=== PATIENT | male | born 1955 | race Caucasian/White ===

== ENCOUNTER → 2019-11-14 10:58 | Outpatient (REF) | payer BC, SELFPAY | LOC: ANHLAB 10:58 | PROVIDERS: PCP Internal Medicine; Visit Provider Nurse Practitioner | DX: D49.2 Neoplasm of unspecified behavior of bone, soft tissue, and skin (principal) | CPT/HCPCS: 88305 ==

== ENCOUNTER 2019-12-20 09:34 | Outpatient (CLI) | payer BC, SELFPAY ==
[2019-12-20 09:48] LABS: Basophils Absolute Auto 0.1 K/mm3 (0.0-0.1); Basophils Percent Auto 0.5 % (0.2-1.2); Eosinophils Absolute Auto 0.2 K/mm3 (0-0.3); Eosinophils Percent Auto 2.4 % (0-4.4); Hematocrit 53.2 % (42.0-52.0); Hemoglobin 18.1 g/dL (14.0-18.0); Immature Granulocyte Absolute 0.03 K/mm3 (0.00-0.031); Immature Granulocyte Percent A 0.3 % (0-0.5); Lymphocytes Absolute Auto 3.01 K/mm3 (0.9-3.2); Lymphocytes Percent Auto 32.6 % (18.3-44.2); Mean Corpuscular Hemoglobin 32.6 pg (26-34); Mean Corpuscular Volume 95.9 fl (80-100); Mean Platelet Volume 10.3 fl (7.4-10.4); Monocytes Absolute Auto 1.1 K/mm3 (0.1-0.6); Neutrophils Absolute Auto 4.8 K/mm3 (1.3-6.7); Neutrophils Percent Auto 52.2 % (45.5-73.1); Platelet Count Result 181 k/mm3 (150-375); Red Blood Count 5.55 M/mm3 (4.6-6.20); White Blood Count 9.2 K/mm3 (4.5-10.0)
[2019-12-20 11:39] LABS: Alanine Aminotransferase 44 U/L (4-50); Albumin Level 4.8 g/dL (3.5-5.1); Alkaline Phosphatase 57 U/L (38-126); Aspartate Amino Transferase 34 U/L (17-59); Blood Urea Nitrogen 22 mg/dL (9-20); Calcium 9.8 mg/dL (8.4-10.2); Carbon Dioxide 25 mmol/L (22-30); Chloride 101 mmol/L (98-107); Estimated Glomerular Filt Rate > 60; Glucose 109 mg/dL (75-110); Potassium 4.9 mmol/L (3.4-5.0); Sodium 136 mmol/L (137-145)
[2019-12-22 17:57] LABS: Erythropoietin (EPO) 6.5 mIU/mL (2.6-18.5)
== END 2019-12-20 09:35 | disposition home or self-care (01) ==
LOC: ANHLAB 09:35
PROVIDERS: PCP Internal Medicine; Visit Provider Internal Medicine Hematology & Oncology
DX: D75.1 Secondary polycythemia (principal)
CPT/HCPCS: 36415; 80053; 82668; 85025

== ENCOUNTER 2022-10-02 00:56 | Day surgery (SDC) | payer MEDICARE, SELFPAY ==
[2022-09-22 16:05] VITALS: BMI 35.0
--- NOTE | 2022-10-01 17:03 | PM.HPGS ---
History of Present Illness History of Present Illness Consent: Risks, benefits, and alternatives have been discussed and questions answered. Patient agrees to proceed with procedure. Chief complaint: neoplasm screening Narrative: Poncho Weeks is a 67 year old male referred for colon cancer screening. Review of Systems Review of Systems: All systems reviewed & are unremarkable except as noted in HPI and below PMFSH Past Medical History Medical History Benign essential hypertension Diabetes DM w/o complication type II Dyslipidemia associated with type 2 diabetes mellitus Hypogonadism Hypovitaminosis D Obesity (BMI 30-39.9) MANPREET (obstructive sleep apnea) Surgical History Surgical History Hx of shoulder surgery Family History Family History Father Family history of malignant neoplasm Social History Social History Smoking packs per day: 1 Smoking cigarettes per day: 20.0 Years smoked: 25 Smoking pack-years: 25.00 Smoking status: Former smoker Tobacco type: cigarettes Smoking end date: 10/12/19 Alcohol intake: never Substance use: never Substance use type: does not use Lack of Transportation: No Lack of Food: Never True Current Housing: I Have Housing Concerned About Future Housing: No Difficulty Paying Gas/Electric Bills: No Difficulty Paying for Meds: No Currently Unemployed: No Education: High School Diploma/GED Difficulty w/ Childcare or Family Care: No Living arrangements: with family Gender identity (if verbalized by the patient): Male Spiritual care concerns: No Meds Home Medications and Allergies Home Medications Medication Instructions Recorded Confirmed Type multivitamin 1 tablet PO DAILY 05/16/19 10/02/22 History ascorbic acid (vitamin C) 500 mg 500 mg PO BID 11/14/19 10/02/22 History capsule aspirin 81 mg tablet,delayed 81 mg PO DAILY 11/20/19 10/02/22 History release (Adult Low Dose Aspirin) cholecalciferol (vitamin D3) 50 50 mcg PO DAILY 08/21/20 10/02/22 History mcg (2,000 unit) capsule rosuvastatin 10 mg tablet 10 mg PO DAILY #90 tabs 04/08/22 10/02/22 Rx semaglutide 14 mg tablet 14 mg PO DAILY #90 tabs 07/06/22 10/02/22 Rx coenzyme Q10 200 mg/gram oral 200 mg PO DAILY 08/19/22 10/02/22 History powder (H2Q CoQ10) metformin 1,000 mg tablet 1,000 mg PO DAILY 08/19/22 10/02/22 History testosterone 1 pump topical DAILY low 08/19/22 10/02/22 Rx testosterone #75 grams icosapent ethyl 1 gram capsule 2 g PO DAILY 09/22/22 10/02/22 History (Vascepa) valsartan 160 1 tablet PO DAILY 09/22/22 10/02/22 History mg-hydrochlorothiazide 12.5 mg tablet Allergies Allergy/AdvReac Type Severity Reaction Status Date / Time No Known Allergies Allergy Verified 10/02/22 06:23 Exam Const: General: alert Orientation/consciousness: patient oriented x3 Resp: Auscultation: clear to auscultation bilaterally Cardio: Rhythm: regular rhythm GI: GI Palp: Yes Soft to palpation and No Tenderness to palpation present (GI) Neuro: General: patient oriented x3 Assessment and Plan Assessment and plan (1) Colon cancer screening: Code(s): Z12.11 - Encounter for screening for malignant neoplasm of colon Status: Acute Assessment and Plan: Colonoscopy with possible biopsy or polypectomy or cautery or injection of substances.
[2022-10-02 06:24] VITALS: BP 119/69; PULSE 60; RESP 18; TEMP 36.6; O2SAT 99; BMI 33.7
[2022-10-02 06:31] LABS: Glucose Point of Care 120 mg/dl (65-105)
[2022-10-02] MEDS: LACTATED RINGERS 1,000 ML 150 ML IV CONT (06:39)
--- NOTE | 2022-10-02 07:13 | WPDANESEPPF ---
Anes - Initial Pre Proc Eval Procedure: Operation Date: 10/02/22 07:30 Proposed Procedures p Screening Colonoscopy - Ha Robertson MD Date/Time: 10/02/22 07:13 Surgeon: Ha Robertson MD Pre Op Diagnosis: neoplasm screening Patient Data Age: 67 Gender: M Height: 1.73 m Weight: 100.8 kg Last Vital Signs Temp 97.9 F 10/02/22 06:24 Pulse 60 10/02/22 06:24 Resp 18 10/02/22 06:24 BP 119/69 10/02/22 06:24 Pulse Ox 99 10/02/22 06:24 O2 Del Method Room Air 10/02/22 06:24 Allergies Allergy/AdvReac Type Severity Reaction Status Date / Time No Known Allergies Allergy Verified 10/02/22 06:23 Home Medications Medication Instructions Recorded Confirmed Type multivitamin 1 tablet PO DAILY 05/16/19 10/02/22 History ascorbic acid (vitamin C) 500 mg 500 mg PO BID 11/14/19 10/02/22 History capsule aspirin 81 mg tablet,delayed 81 mg PO DAILY 11/20/19 10/02/22 History release (Adult Low Dose Aspirin) cholecalciferol (vitamin D3) 50 50 mcg PO DAILY 08/21/20 10/02/22 History mcg (2,000 unit) capsule rosuvastatin 10 mg tablet 10 mg PO DAILY #90 tabs 04/08/22 10/02/22 Rx semaglutide 14 mg tablet 14 mg PO DAILY #90 tabs 07/06/22 10/02/22 Rx coenzyme Q10 200 mg/gram oral 200 mg PO DAILY 08/19/22 10/02/22 History powder (H2Q CoQ10) metformin 1,000 mg tablet 1,000 mg PO DAILY 08/19/22 10/02/22 History testosterone 1 pump topical DAILY low 08/19/22 10/02/22 Rx testosterone #75 grams icosapent ethyl 1 gram capsule 2 g PO DAILY 09/22/22 10/02/22 History (Vascepa) valsartan 160 1 tablet PO DAILY 09/22/22 10/02/22 History mg-hydrochlorothiazide 12.5 mg tablet Laboratory Tests 10/02/22 06:29 POC Capillary Glucose 120 mg/dl H mg/dl (65-105) Patient hx anesthesia problems: none Family hx anesthesia problems: none Results Review: All pre-operative results and documents have been reviewed as part of the pre-operative evaluation. [facility] Past Medical History Medical History (Updated 08/19/22 @ 08:55 by Moris Field MD) Benign essential hypertension Diabetes DM w/o complication type II Dyslipidemia associated with type 2 diabetes mellitus Hypogonadism Hypovitaminosis D Obesity (BMI 30-39.9) MANPREET (obstructive sleep apnea) Surgical History Surgical History (Updated 08/19/22 @ 08:25 by Moris Field MD) Hx of shoulder surgery Family History Family History Father Family history of malignant neoplasm Social History Social History (Updated 08/19/22 @ 07:57 by Mirtha Maradiaga MA) Smoking packs per day: 1 Smoking cigarettes per day: 20.0 Years smoked: 25 Smoking pack-years: 25.00 Smoking status: Former smoker Tobacco type: cigarettes Smoking end date: 10/12/19 Alcohol intake: never Substance use: never Substance use type: does not use Lack of Transportation: No Lack of Food: Never True Current Housing: I Have Housing Concerned About Future Housing: No Difficulty Paying Gas/Electric Bills: No Difficulty Paying for Meds: No Currently Unemployed: No Education: High School Diploma/GED Difficulty w/ Childcare or Family Care: No Living arrangements: with family Gender identity (if verbalized by the patient): Male Spiritual care concerns: No Anes - Eval Final PreProcedure Day of Procedure 10/02/22 07:13 Patient weight: obese Heart: regular rate and rhythm Lungs: clear to auscultation Airway: Mallampati scale class III Neurological: alert and oriented Last oral intake: >/= 8 hours ASA classification: III Emergent: no Anesthetic plan: proceed Anesthesia type and monitoring: general GIVS and standard monitoring Results Review: All pre-operative results and documents have been reviewed as part of the pre-operative evaluation. Informed Consent: The patient's anesthetic plan and its attendant risks and benefits were discussed wi
[2022-10-02 07:53] VITALS: BP 124/100; PULSE 68; RESP 18; O2SAT 100
[2022-10-02 08:03] VITALS: BP 98/55; PULSE 56; RESP 20; O2SAT 95
[2022-10-02 08:13] VITALS: BP 105/59; PULSE 57; RESP 20; O2SAT 96
== END 2022-10-02 08:23 | disposition home or self-care (01) ==
PROVIDERS: PCP Internal Medicine; Visit Provider Internal Medicine Gastroenterology
PROC: 0DJD8ZZ Inspection of Lower Intestinal Tract, Via Natural or Artificial Opening Endoscopic (ICD-10-PCS; CPT 45378; principal; 2022-10-02 07:30)
DX: Z12.11 Encounter for screening for malignant neoplasm of colon (principal); D12.8 Benign neoplasm of rectum; K62.1 Rectal polyp; K57.30 Diverticulosis of large intestine without perforation or abscess without bleeding; K64.4 Residual hemorrhoidal skin tags; K64.8 Other hemorrhoids; E11.9 Type 2 diabetes mellitus without complications; I10 Essential (primary) hypertension; E78.5 Hyperlipidemia, unspecified; G47.33 Obstructive sleep apnea (adult) (pediatric); E55.9 Vitamin D deficiency, unspecified; Z79.82 Long term (current) use of aspirin; Z79.84 Long term (current) use of oral hypoglycemic drugs; Z87.891 Personal history of nicotine dependence
CPT/HCPCS: 45380; 82948; 88305; J2704; J7120

== ENCOUNTER → 2023-03-24 09:46 | Outpatient (CLI) | payer MEDICARE, SELFPAY ==
--- NOTE | ~2023-03-24 | XR_ITS ---
Cervical Spine: AP, lateral, oblique, open-mouth views Clinical History: Pain Findings: The normal lordotic curve is maintained. No fracture identified. There is minimal grade 1 r etrolisthesis of C3 over C4. There is mild degenerative disc change at C3-C4 and C4-C5. There is mild degenerative disc change at C6-C7. There is mild facet arthropathy throughout the cervical spine. Pr e-vertebral soft tissues are unremarkable. Impression: Mild degenerative spondylosis overall, as detailed above. Reviewed, dictated and finalized at location M. Impression: Mild degenerative spondylosis overall, as detailed above.
--- NOTE | ~2023-03-24 | XR_ITS ---
Thoracic spine: Clinical Indication: Cervicalgia AP and lateral views were performed. No fracture is seen. There is normal alignment of the vertebrae. The intervertebral disc spaces appe ar normal. Paravertebral soft tissues appear normal. Impression: No significant abnormalities noted. Reviewed, dictated and finalized at [facility]. Impression: No significant abnormalities noted.
== END ==
PROVIDERS: PCP Family Medicine; Visit Provider Family Medicine
DX: M54.2 Cervicalgia (principal); M43.02 Spondylolysis, cervical region
CPT/HCPCS: 72050; 72072

== ENCOUNTER 2023-04-07 08:29 | Emergency (ER) | payer MEDICARE, SELFPAY ==
[2023-04-07] VITALS (10 sets, daily range): BP systolic 84–123; BP diastolic 60–95; PULSE 95–148; RESP 20–32; TEMP 36.6; O2SAT 94–98
--- NOTE | ~2023-04-07 | CT_ITS ---
EXAMINATION: CTA chest PE protocol DATE: 04/07/2023 11:04 CDT INDICATION: Tachycardia. Elevated d-dimer. TECHNIQUE: Computed tomographic angiography (CTA) of the chest was performed with 100 mL Omnipaque-35 0 intravenous contrast. The dose-length product was 749.69 mGy-cm. Maximum intensity projection 3D-re constructions of the aorta and other arteries were constructed by the technologist on a separate work station. Automated exposure control and iterative reconstruction technique were employed. COMPARISON: None. FINDINGS: There is occlusion of the left upper lobe pulmonary artery which may be due to extrinsic ma ss, although pulmonary embolism not excluded. There is effacement of the left lower lobe pulmonary ar eric. Evaluation of the peripheral pulmonary arteries in the left lower lobe limited by motion artifa ct. Large left pleural effusion. Large pericardial effusion. Moderate right pleural effusion. No larg e central pulmonary embolism on the right. There is extensive mediastinal and hilar lymphadenopathy. Moderate thoracic spondylosis. Accentuated thoracic kyphosis. There is a possible sternal fracture ve rsus motion artifact. IMPRESSION: 1. Occlusion left upper lobe pulmonary artery which may be due to extrinsic mass effect secondary to lymphadenopathy and/or pulmonary embolism. Moderate mass effect on the left lower lobe pulmonary burak ry which appears extrinsic to the artery. This may relate to overlying complicated pleural effusion. 2: Large left and moderate right pleural effusions. 3: Large pericardial effusion. 4: Extensive mediastinal and hilar lymphadenopathy which may represent metastatic disease or lymphoma . 5: Possible sternal fracture versus artifact secondary to motion. Reviewed, dictated and finalized at location B. IMPRESSION: 1. Occlusion left upper lobe pulmonary artery which may be due to extrinsic mas s effect secondary to lymphadenopathy and/or pulmonary embolism. Moderate mass effect on the left lower lobe pulmonary artery which appears extrinsic to the a rtery. This may relate to overlying complicated pleural effusion. 2: Large left and moderate right pleural effusions. 3: Large pericardial effusion. 4: Extensive mediastinal and hilar lymphadenopathy which may represent metastat ic disease or lymphoma. 5: Possible sternal fracture versus artifact secondary to motion.
--- NOTE | ~2023-04-07 | XR_ITS ---
XR chest 1V portable 04/07/2023 09:54 Indication: Dyspnea. Shortness of breath. Cough. Procedure: AP portable chest Comparison: No prior studies for comparison. Findings: Extensive bilateral airspace disease, left greater than right. Bilateral pleural effusions, left greater than right. Cardiomegaly. No pneumothorax. Impression: 1: Bilateral airspace disease which may represent edema or pneumonia. 2: Bilateral pleural effusions, left greater than right. Reviewed, dictated and finalized at location B. Impression: 1: Bilateral airspace disease which may represent edema or pneumonia. 2: Bilateral pleural effusions, left greater than right.
--- NOTE | 2023-04-07 08:40 | ECG_ITS ---
Measurements Intervals [place] Rate: 140 P: -17 AL: 147 QRS: 13 QRSD: 69 T: -5 QT: 280 QTc: 428 Interpretive Statements PROBABLE ATRIAL FLUTTER, POSSIBLE SINUS TACHYCARDIA, LOW QRS VOLTAGE [QRS DEFLECTION < 0.5/1.0 mV IN LIMB/CHEST LEADS] NO PREVIOUS ECG AVAILABLE FOR COMPARISON Electronically Signed On 04-07-2023 11:22:25 CDT by Catherine Franklin M.D.
[2023-04-07] MEDS: LACTATED RINGERS 1,000 ML 999 ML IV CONT ×2 (08:45→09:32)
[2023-04-07] MEDS: cefTRIAXone 2 GM/NS 100 ML 2 GM/100 ML BAG IVPB (08:57)
[2023-04-07 09:14] LABS: Alanine Aminotransferase 25 U/L (6-50); Alkaline Phosphatase 82 U/L (38-126); Anion Gap 10 mmol/L (8-16); Aspartate Amino Transferase 32 U/L (17-59); Bilirubin,Total 0.9 mg/dL (0.2-1.3); Blood Urea Nitrogen 21 mg/dL (9-20); Calcium 9.7 mg/dL (8.4-10.2); Carbon Dioxide 25 mmol/L (22-30); Chloride 97 mmol/L (98-107); Estimated CRCL calculation 80 ml/min; Estimated Glomerular Filt Rate > 60; Glucose 129 mg/dL (65-110); Potassium 4.2 mmol/L (3.4-5.0); Sodium 132 mmol/L (137-145)
[2023-04-07 09:25] LABS: NT Pro B Type Natriuretic Pept 384 pg/mL (19.9-100); Troponin I < 0.012 ng/mL (0.000-0.034)
[2023-04-07 09:25] LABS: Basophils Percent Auto 0.3 % (0.2-1.2); Eosinophils Percent Auto 0.3 % (0-4.4); Hematocrit 33.3 % (42.0-52.0); Immature Granulocyte Absolute 0.04 K/mm3 (0.00-0.031); Immature Granulocyte Percent A 0.4 % (0-0.5); Lymphocytes Absolute Auto 0.98 K/mm3 (0.9-3.2); Lymphocytes Percent Auto 10.5 % (18.3-44.2); Mean Corpuscular Hemoglobin 31.6 pg (26-34); Mean Corpuscular Volume 95.7 fl (80-100); Mean Platelet Volume 9.2 fl (7.4-10.4); Monocytes Absolute Auto 0.8 K/mm3 (0.1-0.6); Monocytes Percent Auto 8.4 % (2.6-8.5); Neutrophils Absolute Auto 7.4 K/mm3 (1.3-6.7); Neutrophils Percent Auto 80.1 % (45.5-73.1); Platelet Count Result 295 k/mm3 (150-375); Red Blood Count 3.48 M/mm3 (4.6-6.20); Red Cell Distribution Width 12.5 % (11.5-14.5); White Blood Count 9.3 K/mm3 (4.5-10.0)
[2023-04-07] MEDS: DOXYCYCLINE 100 MG/NS 100 ML 100 MG/100 ML BAG IVPB (09:31)
[2023-04-07] MEDS: dilTIAZem HCl INJ 25 MG/5 ML VIAL 10 MG IV PUSH (09:46)
[2023-04-07 09:51] LABS: D Dimer 3.57 ug/mL (<0.48)
[2023-04-07 10:48] LABS: Influenza A QL RT-PCR Negative (Negative); Influenza B QL RT-PCR Negative (Negative); RSV RNA, RT-PCR Negative (Negative); SARS-CoV-2 RNA PCR Negative (Negative)
--- NOTE | 2023-04-07 12:29 | ED.SOB ---
HPI - SOB/Dyspnea General Chief Complaint: Shortness of Breath/Dyspnea Stated Complaint: cant breath Time Seen by Provider: 04/07/23 08:37 History of Present Illness HPI Narrative: Pt was being treated by ENT for congestion, with increasing cough and difficulty breathing which worsened acutely yesterday. No fevers/chills. Related Data Home Medications Medication Instructions Recorded Confirmed multivitamin 1 tablet PO DAILY 05/16/19 03/29/23 ascorbic acid (vitamin C) 500 mg 500 mg PO BID 11/14/19 03/29/23 capsule aspirin 81 mg tablet,delayed 81 mg PO DAILY 11/20/19 03/29/23 release (Adult Low Dose Aspirin) cholecalciferol (vitamin D3) 50 50 mcg PO DAILY 08/21/20 03/29/23 mcg (2,000 unit) capsule coenzyme Q10 200 mg/gram oral 200 mg PO DAILY 08/19/22 03/29/23 powder (H2Q CoQ10) testosterone 1.62 % (20.25 mg/1.25 topical 03/29/23 03/29/23 gram) transdermal gel packet Allergies Allergy/AdvReac Type Severity Reaction Status Date / Time No Known Allergies Allergy Verified 04/07/23 08:43 Review of Systems Review of Systems: CONST: No fever. HEENT: Congestion, sore throat C/V: Chest tightness RESP: Cough, trouble breathing GI: No nausea : No dysuria. M/S: No joint pain. SKIN: No rash. NEURO: [No headache or focal numbness or weakness] PSYCH: [No depression] [facility] Past Medical History Medical History Benign essential hypertension Diabetes DM w/o complication type II Dyslipidemia associated with type 2 diabetes mellitus Hypogonadism Hypovitaminosis D Obesity (BMI 30-39.9) MANPREET (obstructive sleep apnea) Surgical History Surgical History Hx of shoulder surgery Family History Family History (Updated 03/29/23 @ 08:04 by Eugenia Bunch CMA) Father Family history of malignant neoplasm FH: kidney cancer Mother Kidney disease Social History Social History Smoking packs per day: 1 Smoking cigarettes per day: 20.0 Years smoked: 25 Smoking pack-years: 25.00 Smoking status: Former smoker Tobacco type: cigarettes Smoking end date: 10/12/19 Alcohol intake: never Substance use: never Substance use type: does not use Lack of Transportation: No Lack of Food: Never True Current Housing: I Have Housing Concerned About Future Housing: No Difficulty Paying Gas/Electric Bills: No Difficulty Paying for Meds: No Currently Unemployed: No Education: High School Diploma/GED Difficulty w/ Childcare or Family Care: No Living arrangements: with family Gender identity (if verbalized by the patient): Male Spiritual care concerns: No Exam Narrative: EXAMINATION OF ORGAN SYSTEMS/BODY AREAS: Constitutional: Vital signs per nursing GENERAL: Dyspneic, labored respirations, distress HEAD: Normal with no signs of head trauma. EYES: EOMI, conjunctiva normal ENT: Slightly hoarse voice LUNGS: labored breathing, bilaleral rales HEART: Tachycardic ABD: [Soft], [nontender to palpation] EXT: Normal range of motion SKIN: [No rashes or lesions.] NEURO: [Alert and oriented x 3. No gross focal sensory or strength deficits.] PSYCH: Normal affect Course Vital Signs Vital signs: Vital Signs Temperature 97.8 F 04/07/23 08:34 Pulse Rate 95 04/07/23 08:34 Respiratory Rate 32 H 04/07/23 08:34 Blood Pressure 84/60 L 04/07/23 08:34 Pulse Oximetry 94 04/07/23 08:34 Oxygen Delivery Room Air 04/07/23 08:34 Temperature 97.8 F 04/07/23 08:34 Pulse Rate 142 H 04/07/23 13:56 Respiratory Rate 24 H 04/07/23 13:56 Blood Pressure 122/93 H 04/07/23 13:56 Pulse Oximetry 98 04/07/23 13:56 Oxygen Delivery Nasal Cannula 04/07/23 09:01 Oxygen Flow Rate 2 04/07/23 09:01 MDM - SOB/Dyspnea MDM Narrative Medical decision making narrative: 67-year-old
[2023-04-07 13:32] LABS: INR 1.2; Prothrombin Time 15.7 Seconds (11.1-14.7)
[2023-04-07 13:33] LABS: Partial Thromboplastin Time 42.7 SECONDS (22.3-36.8)
[2023-04-07] MEDS: AMIODARONE 150 MG/D5W 100 ML 150 MG/100 ML BAG 600 MG IV CONT (13:39)
[2023-04-07 13:42] LABS: Alveolar/Arterial O2 Gradient 139.3 mmHg; Base Excess ABG -0.5 mEq/l (+/-2.0); Carboxyhemoglobin 1.6 % THb (0-2.0); Fractional Inspired Oxygen 36 %; Methemoglobin ABG 0.2 %THb (0-1.5); Oxygen Content ABG 20.4 %vol (16.0-22.0); Oxygen Saturation ABG 96.7 % (95.0-100.0); Oxyhemoglobin 94.6 % THb (90.0-100.0); PCO2 ABG 30.9 mmHg (35.0-45.0); PO2 ABG 81.5 mmHg (80.0-100.0); PO2 FiO2 Ratio Arterial Blood 2.26 %; Reduced Hemoglobin 3.6 %THb (0-5.0); Total Hemoglobin 15.3 g/dL (12.0-18.0); pH ABG 7.471 (7.350-7.450)
[2023-04-07 13:43] LABS: Device NASAL CANNULA; Modified Allen's Test Pass; Site Drawn RIGHT RADIAL
--- NOTE | 2023-04-07 13:49 | PC.NURSE ---
[facility] Transfer RN called for triage report. She states she will call back with a bed number.
[2023-04-07] MEDS: AMIODARONE 360 MG/D5W 200 ML 360 MG/200 ML BAG 33.33 MG IV CONT (13:53)
--- NOTE | 2023-04-07 14:58 | PC.NURSE ---
Report given to JAMEL Oden at [facility]. Can be reached at [phone]
== END 2023-04-07 15:07 | disposition short-term general hospital (02) ==
PROVIDERS: Emergency Provider Emergency Medicine; PCP Family Medicine
DX: I48.92 Unspecified atrial flutter (principal); I31.39 Other pericardial effusion (noninflammatory); J90 Pleural effusion, not elsewhere classified; R06.00 Dyspnea, unspecified; Z20.822 Contact with and (suspected) exposure to COVID-19; I10 Essential (primary) hypertension; E11.69 Type 2 diabetes mellitus with other specified complication; E78.5 Hyperlipidemia, unspecified; E55.9 Vitamin D deficiency, unspecified; G47.33 Obstructive sleep apnea (adult) (pediatric); E66.9 Obesity, unspecified; Z68.31 Body mass index [BMI] 31.0-31.9, adult; Z87.891 Personal history of nicotine dependence; Z79.84 Long term (current) use of oral hypoglycemic drugs; Z79.85 Long-term (current) use of injectable non-insulin antidiabetic drugs; Z79.82 Long term (current) use of aspirin; R94.31 Abnormal electrocardiogram [ECG] [EKG]; I26.99 Other pulmonary embolism without acute cor pulmonale; R59.1 Generalized enlarged lymph nodes; R93.7 Abnormal findings on diagnostic imaging of other parts of musculoskeletal system
CPT/HCPCS: 36415; 36600; 71045; 71275; 80053; 82375; 82805; 83050; 83605; 83880; 84484; 85025; 85380; 85610; 85730; 87040; 87147; 87181; 87186; 87637; 93005; 96365; 96366; 96367; 96375; 99285; J0282; J0696; J7120; Q9967

== ENCOUNTER 2024-10-13 11:05 | Emergency (ER) | payer MEDICARE, SELFPAY ==
--- NOTE | 2024-10-13 11:10 | ED_ITS ---
HPI - Skin/Abscess/Foreign Bdy General Chief complaint: Skin/Abscess/Foreign Body Stated complaint: Rash Left Side Source: patient Mode of arrival: ambulatory Limitations: no limitations History of Present Illness HPI narrative: Patient presents to the [facility] with complaints for rash to the left side of his abdomen x2 days. Patient endorses that is painful and itchy. Denies fevers or chills. He currently has lung CA and undergoing treatment. Related Data Home Medications ?Medication ?Instructions ?Recorded ?Confirmed ?Last Taken ?Type multivitamin 1 tablet PO DAILY 05/16/19 01/20/24 Unknown History ascorbic acid (vitamin C) 500 mg 500 mg PO BID 11/14/19 01/20/24 Unknown History capsule cholecalciferol (vitamin D3) 50 50 mcg PO DAILY 08/21/20 01/20/24 Unknown History mcg (2,000 unit) capsule coenzyme Q10 200 mg/gram oral 200 mg PO DAILY 08/19/22 01/20/24 Unknown History powder (H2Q CoQ10) furosemide 40 mg tablet 40 mg PO BID 05/12/23 01/20/24 Unknown History gabapentin 300 mg capsule 300 mg PO TID 05/12/23 01/20/24 Unknown History potassium chloride 20 mEq 20 meq PO DAILY 05/12/23 01/20/24 Unknown History tablet,extended release ondansetron HCl 8 mg tablet 8 mg PO Q8H 08/03/23 01/20/24 Unknown History oxycodone 5 mg capsule 5 mg PO Q4H PRN 08/03/23 01/20/24 Unknown History prochlorperazine maleate 10 mg 10 mg PO Q8H PRN 08/03/23 01/20/24 Unknown History tablet Allergies Allergy/AdvReac Type Severity Reaction Status Date / Time No Known Allergies Allergy Verified 10/13/24 11:15 Review of Systems Review of Systems: CONSTITUTIONAL: Denies body aches, fever, chills, or sweats. EYES: Denies visual changes, redness, or discharge. ENT: Denies rhinorrhea, congestion CARDIOVASCULAR: Denies chest pain, palpitations, or edema. RESPIRATORY: Denies cough or dyspnea. GASTROINTESTINAL: Denies abdominal pain, nausea, vomiting, or diarrhea. SKIN: ?rash to left side of abdomen. MUSCULOSKELETAL: Denies back pain, joint pain, or myalgia. NEUROLOGIC: Denies headache, numbness, tingling, or weakness. All systems reviewed & are unremarkable except as noted in HPI and below PMFSH Past Medical History Medical History Hypogonadism Diabetes Hypovitaminosis D Obesity (BMI 30-39.9) Benign essential hypertension Dyslipidemia associated with type 2 diabetes mellitus MANPREET (obstructive sleep apnea) DM w/o complication type II Surgical History Surgical History Hx of shoulder surgery Family History Family History Father Family history of malignant neoplasm FH: kidney cancer Mother Kidney disease Social History Social History Smoking packs per day: 1 Smoking cigarettes per day: 20.0 Years smoked: 25 Smoking pack-years: 25.00 Smoking status: Former smoker Tobacco type: cigarettes Smoking end date: 10/12/19 Alcohol intake: never Substance use: never Substance use type: does not use Lack of Transportation: No Lack of Food: Never True Current Housing: I Have Housing Concerned About Future Housing: No Difficulty Paying Gas/Electric Bills: No Difficulty Paying for Meds: No Currently Unemployed: No Education: High School Diploma/GED Difficulty w/ Childcare or Family Care: No Living arrangements: with family Gender identity (if verbalized by the patient): Male Spiritual care concerns: No Comments At time of signature, I have reviewed and agree with nursing past medical, surgical, social and family history unless otherwise noted. Please see nursing chart for further information. There is no relevant family history pertinent to the presenting complaint. Exam Narrative: GENERAL: Well-appearing HEAD: Normocephalic, atraumatic. EYES: ?conjunctivae clear, and EOMI. ENT: Mucous membranes moist. Oropharynx without edema, erythema or lesions. NECK: Supple. No lymphadenopathy CHEST: Clear to auscultation. HEART: Regular rate and rhythm. SKIN: Warm, dry. Painful erythematous base with vesicular leisons on the left side of abdomen. NEURO: ?Alert and oriented x3.? Course Course Level of Care: Express Care Visit Vital Signs Vital signs: Vital Signs Temperature 36.8 C 10/13/24 11:15 Pulse Rate 72 10/13/24 11:15 Respiratory Rate 19 10/13/24 11:15 Blood Pressure 101/64 10/13/24 11:15 Temperature 36.8 C 10/13/24 11:15 Pulse Rate 72 10/13/24 11:15 Respiratory Rate 19 10/13/24 11:15 Blood Pressure 101/64 10/13/24 11:15 Reviewed MDM - Skin/Abscess/Foreign Bdy MDM Narrative Medical decision making narrative: Discussed physical exam findings. Prescribed Acyclovir for patient. Advised supportive measures and signs/symptoms to go to the ER. Pt is appropriate for outpatient treatment and follow up. Differential Diagnosis Differential diagnosis: Likely allergic reaction to drug, cellulitis, eczema and other (shingles) Critical Care Time Critical Care Time Critical Care Time: No Discharge Plan Discharge Clinical Impression: Shingles rash Qualifiers: Herpes zoster complications: without complications Qualified Code(s): B02.9 - Zoster without complications Patient Disposition: Home Condition: Stable Instructions: Shingles (ED) Additional Instructions: Take medication as directed Keep the lesions covered until they are fully crusted over - you are contagious until they are dried Avoid contact with women or people who have not had chickenpox vaccination. Tylenol 1000mg every 8 hours as needed Lidocaine 5% patch as directed Follow up with your primary care provider next week. Go to the ER for worsening symptoms or concerns. Patient Language: [place] Prescriptions: New acyclovir 800 mg tablet 800 mg PO Q4H 7 Days Qty: 42 0RF Rx Instructions: while awake; give 5 doses in 24 hours No Action ascorbic acid (vitamin C) 500 mg capsule 500 mg PO BID H2Q CoQ10 200 mg/gram powder 200 mg PO DAILY oxycodone 5 mg capsule 5 mg PO Q4H PRN prochlorperazine maleate 10 mg tablet 10 mg PO Q8H PRN ondansetron HCl 8 mg tablet 8 mg PO Q8H potassium chloride 20 mEq tablet extended release 20 meq PO DAILY furosemide 40 mg tablet 40 mg PO BID gabapentin 300 mg capsule 300 mg PO TID multivitamin Tablet 1 tablet PO DAILY cholecalciferol (vitamin D3) 50 mcg (2,000 unit) capsule 50 mcg PO DAILY fluticasone propionate [Flonase Allergy Relief] 50 mcg/actuation spray,suspension 2 spray intranasal DAILY Qty: 16 4RF Rx Instructions: administer into each nostril testosterone [AndroGel] 20.25 mg/1.25 gram (1.62 %) gel in metered-dose pump 1 pump topical DAILY Qty: 75 0RF Rx Instructions: apply 1 pump amount over max area of ONE upper arm and shoulder Mounjaro 7.5 mg/0.5 mL pen injector 7.5 mg subcut WEEKLY Qty: 2 1RF metformin 500 mg tablet 500 mg PO DAILY Qty: 100 1RF rosuvastatin 10 mg tablet See Rx Instructions .ROUTE .COMPLEX Qty: 100 1RF Dose Instruction: TAKE 1 TABLET BY MOUTH DAILY Rx Instructions: TAKE 1 TABLET BY MOUTH DAILY Mounjaro 10 mg/0.5 mL pen injector 10 mg subcut WEEKLY Qty: 2 3RF valsartan-hydrochlorothiazide 160-12.5 mg tablet See Rx Instructions .ROUTE .COMPLEX Qty: 90 1RF Dose Instruction: TAKE 1 TABLET BY MOUTH DAILY Rx Instructions: TAKE 1 TABLET BY MOUTH DAILY tadalafil [Cialis] 10 mg tablet 10 mg PO DAILY PRN (Reason: sexual activity) Qty: 30 3RF Rx Instructions: administer approximately 30min before sexual activity; do not use more than 1 dose per 24hrs amoxicillin-pot clavulanate 875-125 mg tablet 1 tablet PO BID Qty: 14 0RF Mounjaro 12.5 mg/0.5 mL pen injector 12.5 mg subcut WEEKLY Qty: 2 0RF Follow-up/Referrals: PHYSICIAN,BAKING ASSISTANT [Primary Care Provider] - Time of Disposition: 11:23
[2024-10-13 11:15] VITALS: BP 101/64; PULSE 72; RESP 19; TEMP 36.8
== END 2024-10-13 11:38 | disposition home or self-care (01) ==
PROVIDERS: Emergency Provider Nurse Practitioner Family
DX: B02.9 Zoster without complications (principal); Z87.891 Personal history of nicotine dependence; E11.9 Type 2 diabetes mellitus without complications; Z79.84 Long term (current) use of oral hypoglycemic drugs; Z79.85 Long-term (current) use of injectable non-insulin antidiabetic drugs; I10 Essential (primary) hypertension; E78.5 Hyperlipidemia, unspecified; E66.9 Obesity, unspecified; E55.9 Vitamin D deficiency, unspecified; Z68.31 Body mass index [BMI] 31.0-31.9, adult
CPT/HCPCS: 99213; G0463